=== PATIENT | female | born 1980 | race Two or more races ===

== ENCOUNTER 2025-07-08 21:45 | Emergency (ER) | payer MEDICAID, SELFPAY ==
[2025-07-08 21:47] VITALS: BMI 38.2
--- NOTE | 2025-07-08 21:57 | PD.EDABDPN ---
ED Abdominal Pain RME/HPI General Chief Complaint: Abdominal Pain Stated complaint: LEFT UPPER ABD PAIN Time seen by provider: 07/08/25 21:55 Arrival date/time: 07/08/25 21:45 RME / HPI RME / HPI narrative: See MDM for Dr. Benedict's HPI documentation. Related Data Previous Rx's ?Medication ?Instructions ?Recorded amlodipine 5 mg tablet 5 mg PO QDAY #30 tabs 07/23/24 atorvastatin 40 mg tablet 40 mg PO QPM #30 tabs 07/23/24 blood-glucose sensor (FreeStyle #2 ea 07/23/24 Griselda 3 Sensor device) blood-glucose,accounts payable coordinator,cont #1 ea 07/23/24 (FreeStyle Griselda 3 [place]) insulin degludec 100 unit/mL (3 20 unit (0.2 mL) subcut HS #15 mL 07/23/24 mL) subcutaneous pen (Tresiba FlexTouch U-100 insulin) lisinopril 40 mg tablet 40 mg PO QDAY #30 tabs 07/23/24 metformin 1,000 mg tablet 1,000 mg PO BIDWMEAL 30 days #60 07/23/24 tabs pen needle, diabetic 32 gauge x #100 ea 07/23/24 (1st Tier Unifine Pentips Plus) semaglutide 0.25 mg or 0.5 mg (2 0.25 mg (0.368 mL) subcut QWEEK #3 07/23/24 mg/3 mL) subcutaneous pen injector mL (Ozempic) cefdinir 300 mg capsule 300 mg PO BID #14 caps 07/09/25 magnesium oxide 400 mg PO BID #60 tabs 07/09/25 ondansetron 4 mg disintegrating 4 mg PO TID PRN nausea and 07/09/25 tablet vomiting 30 days #10 tabs Allergies Allergy/AdvReac Type Severity Reaction Status Date / Time morphine Allergy Severe Swelling Verified 07/08/25 21:46 of Lip/Tongue/Throat Review of Systems Review of Systems Systems Reviewed: All systems reviewed, normal except as documented Past Medical History Past Medical History NEUROLOGIC: Negative Neurological Disorders CARDIAC: Positive Hypertension; Negative Cardiac Disorders or Congestive Heart Failure RESPIRATORY: Negative Chronic Obstructive Pulmonary Disease (COPD) GASTROINTESTINAL: Negative Gastrointestinal Disorders GENITOURINARY: Negative Genitourinary Disorders or Renal Disease MUSCULOSKELETAL: Negative Musculoskeletal Disorders ENDOCRINE: Positive Endocrine Disorders, Diabetes Mellitus Type 1 and Diabetes Mellitus Type 2 Family History FAMILY HISTORY: Negative Family Cardiac Disorders Surgical History SURGICAL: Negative Cardiac Surgery, Endocrine Surgery, Ear Surgery, Abdominal Surgery, Nephrectomy or Neurologic Surgery Social History SMOKING STATUS: Never smoker SUBSTANCE USE: does not use ED Exam Narrative Physical exam: See [facility] for Dr. Benedict's physical exam documentation. Course Quality Measures none Orders Category Date Time Status Saline [Insert IV] NOW Care 07/08/25 23:[address] abdomen pelvis wo con Stat Exams 07/08/25 22:07 Taken US abdomen limited Stat Exams 07/08/25 22:14 Completed Amylase Stat Lab 07/08/25 22:35 Completed Bilirubin,Direct Stat Lab 07/08/25 22:35 Completed CBC Stat Lab 07/08/25 22:35 Completed CMP [Comprehensive Metabolic Panel] Stat Lab 07/08/25 22:35 Completed HCG Qualitative,Urine Stat Lab 07/08/25 22:43 Completed HCG,Qualitative Serum Stat Lab 07/08/25 22:35 Completed Lipase Stat Lab 07/08/25 22:35 Completed Magnesium Stat Lab 07/08/25 22:35 Completed UA, C/S IF [Urinalysis, C/S if Indicated] Stat Lab 07/08/25 22:43 Completed Urine Culture Stat Lab 07/08/25 22:43 Received ACETAMINOPHEN w/COD 300-30 [Tylenol w/Cod #3] Med 07/08/25 22:06 Discontinued 2 tab PO X1 ONE Magnesium Sulfate 4 GM Ivpb [Magnesium Sulfate Ivpb] Med 07/08/25 23:53 Discontinued 4 gm in 50 ml IV X1 Ondansetron Inj [Zofran Inj] Med 07/08/25 23:52 Discontinued 4 mg IVP X1 ONE Ondansetron Odt [Zofran Odt] Med 07/08/25 22:06 Discontinued 4 mg PO X1 ONE Sodium Chloride 0.9% 1000 ml [Ns] 1,000 ml Med 07/08/25 23:52 Discontinued IV 999 mls/hr cefTRIAXone/D5w 1gm IV premix [Rocephin/D5w 1gm IV Med 07/08/25 23:52 Discontinued premix] 1 g in 50 ml IV X1 Vital Signs Vital signs: Vital Signs Temperature 98.6 F 07/08/25 22:42 Pulse Rate 99 07/08/25 22:42 Respiratory Rate 18 07/08/25 22:42 Blood Pressure 177/83 H 07/08/25 22:42 Pulse Oximetry (%) 96 07/08/25 22:42 Oxygen Delivery Method Room Air 07/08/25 22:42 Abdominal Pain MDM MDM Narrative MDM Narrative:: This section includes all my notes and documentations, including HPI, PE, and ED course. Anant Benedict MD HPI: 45yo female here with left flank pain for the last couple days. With nausea, vomiting, and decreased appetite. No fever. No other complaints reported. ROS: All negative except as documented in HPI. Physical Exam: General: Alert and oriented. Appears uncomfortable. Eyes: Conjunctivae and lids clear. ENT: No nasal congestion. Neck: Supple. Heart: RRR. Lungs: No respiratory distress. Good air movement. No rhonchi, wheezing, rales. Abdomen: Soft with equivocal left flank tenderness. Normal bowel sounds. No distension. No rebound or guarding. Back: No CVA tenderness. Skin: Warm and dry. Neuro: Alert and oriented X 3. Prior to diagnostic tests, she was given Zofran ODT and two Tylenol #3. No improvement noted. I reviewed all diagnostic test results. My review of the abdominal ultrasound report is NAD. My review of the CT abdomen pelvis report is pyelonephritis. Blood tests remarkble for WBC 11.5, Mg 1.1. UA remarkable for positive leukocyte esterase and 4+ bacteria. At this point, diagnoses include: Pyelonephritis Hypomagnesemia Treatment after diagnostic test results included: Magnesium 4 g IV Rocephin 1 g IV IV fluid Zofran 4 mg IV Significant improvement noted. Recommend outpatient management. Based on my best medical judgment, made decision no further evaluation or treatment indicated at this time. Patient understands and agrees to the discharge instructions customized and printed, see below. Discharge instructions from Dr. Benedict: 1. After evaluation, you have kidney infection (see attached handout) and very low magnesium level. 2. Take cefdinir to kill the germs causing the infection. 3. For good hydration, increase oral fluid and maintain clear urine. If dark or yellow, increase oral fluid. Zofran for nausea/vomiting. 4. Take magnesium pills as prescribed. Increase food rich in magnesium. Such as green and leafy vegetables and peanuts and almonds and cashews. 5. See a private doctor on 07/11/2025 for recheck. Ask to review all test results and official radiology reports, to make sure you receive all necessary follow-ups and monitoring, including urine culture results from today and repeat magnesium level. 6. Seek immediate medical care with worsening, fever, or with any concerns. Anant Benedict MD Patient data External records reviewed:: [facility] previous records (Per chart review, patient was seen here on 07/30/24 for hypomagnesemia.) Clinical information provided by:: patient Social determinants that could affect healthcare access:: none Patient has the following chronic illnesses:: DM, HTN How is presenting disease/condition affected by chronic disease/condition?: uneffected by Evaluation data The following diagnostics were reviewed and interpreted by me:: lab results and radiology exam(s) Lab and/or radiology exams considered but not ordered:: none Interpretation Summary: I reviewed all diagnostic test results. My review of the abdominal ultrasound report is NAD. My review of the CT abdomen pelvis report is pyelonephritis. Blood tests remarkble for WBC 11.5, Mg 1.1. UA remarkable for positive leukocyte esterase and 4+ bacteria. Medications / Prescriptions Medications or Prescriptions considered but not ordered:: none Medication administrations:: Medication Administration History Discontinued Medications Acetaminophen/Codeine Phosphate (Acetaminophen W/Cod 300-30 Tablet) 2 tab PO X1 ONE Stop: 07/08/25 22:07 Last Admin: 07/09/25 00:26 Dose: 2 tab Documented By: KEITH Ceftriaxone Sodium/Dextrose (Rocephin/D5w 1gm Iv Premix) 1 g in 50 mls @ 100 mls/hr IV X1 ONE Stop: 07/09/25 00:21 Last Infusion: 07/09/25 01:05 Dose: Infused Documented By: [email or web address] Admin: 07/09/25 00:23 Dose: 100 mls/hr Documented By: KEITH Sodium Chloride (Ns) 1,000 mls @ 999 mls/hr IV .Q1H1M ONE Stop: 07/09/25 00:52 Last Infusion: 07/09/25 01:05 Dose: Infused Documented By: [email or web address] Admin: 07/09/25 00:24 Dose: 999 mls/hr Documented By: KEITH Magnesium Sulfate (Magnesium Sulfate Ivpb) 4 gm in 50 mls @ 12.5 mls/hr IV X1 ONE Stop: 07/09/25 03:52 Last Admin: 07/09/25 00:26 Dose: 12.5 mls/hr Documented By: KEITH Ondansetron HCl (Ondansetron Odt 4 Mg Tabrap) 4 mg PO X1 ONE; Protocol Stop: 07/08/25 22:07 Last Admin: 07/09/25 00:26 Dose: Not Given Documented By: KEITH Non-Admin Reason: Allergy Ondansetron HCl (Ondansetron Inj 2 Mg/Ml Inj 2 Ml) 4 mg IVP X1 ONE; Protocol Stop: 07/08/25 23:53 Last Admin: 07/09/25 00:24 Dose: 4 mg Documented By: KEITH Prior to diagnostic tests, she was given Zofran ODT and two Tylenol #3. No improvement noted. Treatment after diagnostic test results included: Magnesium 4 g IV Rocephin 1 g IV IV fluid Zofran 4 mg IV Consultations Consultation(s) initiated? (list below): No Diagnosis Differential diagnosis abdominal pain: acute appendicitis, calculus of kidney, constipation, diverticulitis, endometriosis, gastroenteritis, pancreatitis and small bowel obstruction Most likely diagnosis given after review of the tests above:: Pyelonephritis, Hypomagnesemia Admission Indicated Admission indicated?: not indicated Explain why admission is indicated or not indicated:: With significant improvement and no condition needing emergent intervention, there was no indication for admission. Admission Request Was there a request for admission?: No Disposition Plan Disposition Plan: Discharge Discharge Attestation Discharge Attestation: The patient and all family members were given an opportunity to ask questions and understood the discharge instructions. Discharge instructions specifically effects, indications for sooner follow up or return to the emergency department, and the expected course of current diagnosis. Patient condition: Stable Discharge Plan Plan Patient Disposition: HOME (Self Care) Prescriptions/Referrals Prescriptions/Med Rec: New cefdinir 300 mg capsule 300 mg PO BID Qty: 14 0RF magnesium oxide 400 mg magnesium tablet 400 mg PO BID Qty: 60 0RF ondansetron 4 mg tablet,disintegrating 4 mg PO TID PRN (Reason: nausea and vomiting) 30 Days Qty: 10 0RF No Action lisinopril 40 mg tablet 40 mg PO QDAY Qty: 30 0RF insulin degludec [Tresiba FlexTouch U-100] 100 unit/mL (3 mL) insulin pen 20 unit subcut HS Qty: 15 0RF Ozempic 0.25 mg or 0.5 mg (2 mg/3 mL) pen injector 0.25 mg subcut QWEEK Qty: 3 0RF Rx Instructions: for 4 weeks (DME) pen needle, diabetic [1st Tier Unifine Pentips Plus] 32 gauge x 5/32 needle See Rx Instructions .Route Qty: 100 0RF Rx Instructions: As directed (DME) FreeStyle Griselda 3 [place] Misc See Rx Instructions .Route Qty: 1 0RF Rx Instructions: As directed atorvastatin 40 mg tablet 40 mg PO QPM Qty: 30 0RF (DME) FreeStyle Griselda 3 Sensor Device See Rx Instructions .Route Qty: 2 3RF Rx Instructions: As directed metformin 1,000 mg tablet 1,000 mg PO BIDWMEAL 30 Days Qty: 60 2RF amlodipine 5 mg tablet 5 mg PO QDAY Qty: 30 3RF Referrals: No Primary/Family,Physician [Primary Care Provider] - In 1 week Problem List Clinical Impression: Pyelonephritis, Hypomagnesemia Patient/Caregiver Discharge Instructions Discharge Activity: activity as tolerated Education Materials: Magnesium (Blood), ED Pyelonephritis, Female (Adult) Additional Instructions: Discharge instructions from Dr. Benedict: 1. After evaluation, you have kidney infection (see attached handout) and very low magnesium level. 2. Take cefdinir to kill the germs causing the infection. 3. For good hydration, increase oral fluid and maintain clear urine. If dark or yellow, increase oral fluid. Zofran for nausea/vomiting. 4. Take magnesium pills as prescribed. Increase food rich in magnesium. Such as green and leafy vegetables and peanuts and almonds and cashews. 5. See a private doctor on 07/11/2025 for recheck. Ask to review all test results and official radiology reports, to make sure you receive all necessary follow-ups and monitoring, including urine culture results from today and repeat magnesium level. 6. Seek immediate medical care with worsening, fever, or with any concerns. Instrucciones de fede del Dr. Benedict: 1. Tras la evaluaci?n, presenta tessie infecci?n renal (dafne folleto adjunto) y un nivel muy bajo de magnesio. 2. [place] cefdinir para eliminar los g?rmenes que causan la infecci?n. 3. Para tessie buena hidrataci?n, aumente la ingesta de l?quidos y mantenga la orina leonard. Si la orina es oscura o amarilla, aumente la ingesta de l?quidos. Zofran para las n?useas y los v?mitos. 4. [place] las pastillas de magnesio seg?n lo prescrito. Aumente el consumo de alimentos ricos en magnesio, kwame verduras de hoja danay, cacahuetes, almendras y anacardos. 5. Consulte con un m?dico particular el 10/07/2025 para tessie nueva evaluaci?n. Solicite la revisi?n de todos los resultados de las pruebas y los informes radiol?gicos oficiales para asegurarse de recibir todos los controles y monitoreos necesarios, incluyendo los resultados del urocultivo de hoy y la repetici?n del nivel de magnesio. 6. Busque atenci?n m?dica inmediata si presenta empeoramiento de la condici?n, fiebre o cualquier inquietud. Print Language: Mexican Stand Alone Forms: Mary Beth Award Info., Patient Portal Info Letter
--- NOTE | 2025-07-08 22:07 | XR_ITS ---
Examination: CT abdomen and pelvis without contrast. Coronal 3-D reconstructions. Sagittal 2-D reconstructions. Date and time of exam:July 08, 2025, 11:59 PM Indications: Left upper abdominal pain beginning 2 days ago. CTDI: vol (mGy): 15.7. DLP: (mGycm): 125. Technique: Axial images of the abdomen have been obtained, 3 mm slice thickness Intravenous contrast material has not been administered. Low dose protocols were performed. One or more of the following dose reduction techniques were used; automated exposure control, adjustment of the mA and/or KV according to patient size, use of iterative reconstruction technique. Findings: Hyperdense material in the stomach, clinical correlation advised No liver or splenic lesion Absent gallbladder Mild perinephric stranding. No renal or ureteral calculi, no hydronephrosis Aorta normal size. Tiny fat-containing umbilical hernia. Normal appendix. No pelvic mass Contracted urinary bladder Impression: Minor perinephric stranding Normal appendix No bowel obstruction
--- NOTE | 2025-07-08 22:14 | XR_ITS ---
Examination: Abdomen sonogram, Limited Date and time of exam: July 08, 2025 1020 hrs. Indications: Epigastric pain and nausea today Technique: Real-time melton scale transabdominal sonographic images of the upper abdomen obtained. Findings: No diagnostic visualization gallbladder Common bile duct 0.6 cm no stones Pancreatic head 3.1 cm Liver 13.8 cm fatty infiltration Normal hepatopedal portal venous flow Patent IVC Impression: No diagnostic visualization gallbladder Common bile duct 0.6 cm no stones
[2025-07-08 22:42] VITALS: BP 177/83; PULSE 99; RESP 18; TEMP 37; O2SAT 96
[2025-07-08 22:43] LABS: Basophils # (Auto) 0.0 Thou/mm3 (0.0-0.2); Basophils % (Auto) 0 % (0-2.5); Eosinophils # (Auto) 0.5 Thou/mm3 (0.0-0.5); Eosinophils % (Auto) 4 % (0-10); Hematocrit 38.0 % (36.0-46.0); Hemoglobin 13.2 g/dL (12.0-16.0); Immature Granulocytes Auto 0.04 Thou/mm3 (0.00-0.00); Lymphocytes # (Auto) 3.6 Thou/mm3 (1.0-4.8); Lymphocytes % (Auto) 31 % (10-50); Mean Corpuscular HGB Conc 34.7 g/dl (31.0-37.0); Mean Corpuscular Hemoglobin 30.8 pg (25.0-35.0); Mean Corpuscular Volume 89 fL (80-100); Monocytes # (Auto) 0.7 Thou/mm3 (0.0-0.8); Monocytes % (Auto) 6 % (0-12); Neutrophils # (Auto) 6.8 Thou/mm3 (1.8-7.7); Neutrophils % (Auto) 59 % (37-80); Nucleated Red Blood Cell # 0.00 Thou/mm3 (0.00-0.00); Nucleated Red Blood Cell % 0 /100 WBC (0); Platelet Count 237 Thou/mm3 (140-440); RDW Standard Deviation 37.9 fL (36.4-46.3); Red Blood Count 4.28 Miln/mm3 (4.00-5.20); White Blood Count 11.5 Thou/mm3 (3.6-11.0)
[2025-07-08 23:00] LABS: HCG,Qualitative Serum Negative
[2025-07-08 23:03] LABS: Alanine Aminotransferase 15 U/L (10-49); Albumin, Serum 4.0 gm/dL (3.5-5.0); Albumin/Globulin Ratio 1.2 (1.2-2.2); Alkaline Phosphatase 76 U/L (46-116); Amylase 60 U/L (30-118); Anion Gap 10 (7-16); Aspartate Amino Transferase 18 U/L (0-34); BUN/Creatinine Ratio 16 Ratio (12-20); Bilirubin,Direct < 0.1 mg/dL (0.0-0.3); Bilirubin,Total 0.3 mg/dL (0.3-1.2); Blood Urea Nitrogen 13 mg/dL (9-23); Calcium 10.1 mg/dL (8.3-10.6); Calcium (Corrected) 10.1 mg/dL (8.5-10.1); Carbon Dioxide 26.5 mMol/L (20.0-31.0); Chloride 101 mMol/L (98-107); Creatinine (Component) 0.8 mg/dL (0.6-1.3); Estimated Creatinine Clearance 107.6 mL/min (>60); Globulin 3.3 gm/dL (2.3-3.5); Glucose 126 mg/dL (74-106); Lipase 46 U/L (12-53); Magnesium 1.1 mg/dL (1.6-2.6); Osmolality,Calculated 275 (275-295); Potassium 4.6 mMol/L (3.4-5.1); Sodium 137 mMol/L (136-145); Total Protein 7.3 gm/dL (5.7-8.2); eGFR > 60 See Note
[2025-07-08 23:16] LABS: Collection Type, Urine Clean Catch
[2025-07-08 23:28] LABS: Bacteria,Urine 4+; Bilirubin,Urine Negative (Negative); Blood,Urine Negative (Negative); Clarity,Urine Clear (Clear/Hazy); Color,Urine Lt-Yellow (Lt Yel-Yel); Glucose, Urine Negative (Negative); Hyaline Casts,Urine < 1 /hpf (0-1); Ketones,Urine Negative (Negative); Leukocyte Esterase,Urine Positive (Negative); Nitrite,Urine Negative (Negative); PH,Urine 6.0 (5.0-7.0); Protein,Urine 1+ (Neg - Trace); RBC,Urine 2 /hpf (0-3); Specific Gravity,Urine 1.011 (1.001-1.035); Squamous Epithelial Cell,Urine 5 /hpf (0-5); Urobilinogen,Urine Negative mg/dL (0.0-1.0); WBC,Urine 5 /hpf (0-5)
[2025-07-08 23:29] LABS: HCG Qualitative,Urine Negative
[2025-07-08 23:30] LABS: Culture Indicated,Urine Yes
[2025-07-09 00:10] VITALS: BP 187/94; PULSE 101; RESP 18; TEMP 36.9; O2SAT 96
[2025-07-09] MEDS: cefTRIAXone/D5w 1gm IV premix 1 G/50 ML BAG IV (00:23)
[2025-07-09] MEDS: ONDANSETRON INJ 2 MG/ML INJ 2 ML 4 MG IVP (00:24)
[2025-07-09] MEDS: SODIUM CHLORIDE 0.9% 1000 ML 1,000 ML 999 ML IV (00:24)
[2025-07-09] MEDS: Magnesium Sulfate 4 GM Ivpb 4 GM/50 ML BAG IV (00:26)
[2025-07-09] MEDS: ACETAMINOPHEN w/COD 300-30 TABLET 2 TAB PO (00:26)
--- NOTE | 2025-07-09 01:23 | PRELIM_ITS ---
CT scan of the abdomen and pelvis without intravenous contrast (axial sections with sagittal and coronal reformats) July 08, 2025 2359 hours Clinical History: Left flank pain Comparison: No prior study is available for comparison. Findings: The lung bases are clear. The gallbladder is surgically absent. Perinephric fat stranding is seen bilaterally. The liver, pancreas, spleen and adrenals are unremarkable on this noncontrast study. Hyperdense material is seen in the distended stomach. No evidence of bowel obstruction. There are tiny appendicoliths. No evidence of appendicitis. There is no mesenteric or retroperitoneal adenopathy. The urinary bladder is incompletely distended and appears mildly thick walled. The uterus and adnexa are unremarkable. There is no free fluid or free air. Calcific densities are seen in the pelvis, likely representing phleboliths. Mild degenerative changes are identified in the spine. Impression: No evidence of renal/ureteric calculus or hydroureteronephrosis. Perinephric fat stranding bilaterally. While nonspecific, the possibility of urinary infection cannot be excluded. Possible cystitis. Recommend clinical correlation. Hyperdense material in the stomach, could be due to ingested medication or contrast. Recommend clinical correlation. Discussion Details: Results Discussed With : Dr. Benedict at 01:15 AM 07/09/2025 Report Electronically Signed By: Magdalene Marino 07/09/2025 1:22:46 AM [EST]
[2025-07-09 02:59] VITALS: BP 151/87; PULSE 91; RESP 18; TEMP 36.8; O2SAT 96
[2025-07-09 04:19] VITALS: BP 151/80; PULSE 62; RESP 18; TEMP 36.6; O2SAT 95
== END 2025-07-09 04:21 | disposition home or self-care (01) ==
PROVIDERS: Emergency Provider Emergency Medicine
DX: N12 Tubulo-interstitial nephritis, not specified as acute or chronic (principal); E83.42 Hypomagnesemia
CPT/HCPCS: 36415; 74176; 76705; 80053; 81001; 81025; 82150; 82248; 83690; 83735; 84703; 85025; 87086; 96365; 96366; 96375; 99284; J0696; J2405; J3475; J7030; A9270

== ENCOUNTER 2025-07-18 11:51 | Emergency (ER) | payer MEDICAID, SELFPAY ==
[2025-07-18 12:10] VITALS: BP 154/86; PULSE 94; RESP 18; TEMP 36.9; O2SAT 100; BMI 40.5
--- NOTE | 2025-07-18 12:34 | PD.EDBACK ---
ED Back Injury Pain RME/HPI General Chief Complaint: Back Pain/Injury Stated Complaint: KIDNEY INFECTION, L SIDE PAIN Time Seen by Provider: 07/18/25 12:08 Source: patient Arrival date/time: 07/18/25 11:51 45-year-old female with a history of hypertension, hyperlipidemia, type 2 diabetes presents to the emergency room with a chief complaint of left-sided flank pain x 3 days Mode of arrival: ambulatory Limitations: no limitations Related Data Previous Rx's ?Medication ?Instructions ?Recorded amlodipine 5 mg tablet 5 mg PO QDAY #30 tabs 07/23/24 atorvastatin 40 mg tablet 40 mg PO QPM #30 tabs 07/23/24 blood-glucose sensor (FreeStyle #2 ea 07/23/24 Griselda 3 Sensor device) blood-glucose,dandy tender,cont #1 ea 07/23/24 (FreeStyle Griselda 3 [place]) insulin degludec 100 unit/mL (3 20 unit (0.2 mL) subcut HS #15 mL 07/23/24 mL) subcutaneous pen (Tresiba FlexTouch U-100 insulin) lisinopril 40 mg tablet 40 mg PO QDAY #30 tabs 07/23/24 metformin 1,000 mg tablet 1,000 mg PO BIDWMEAL 30 days #60 07/23/24 tabs pen needle, diabetic 32 gauge x #100 ea 07/23/24 (1st Tier Unifine Pentips Plus) semaglutide 0.25 mg or 0.5 mg (2 0.25 mg (0.368 mL) subcut QWEEK #3 07/23/24 mg/3 mL) subcutaneous pen injector mL (Ozempic) cefdinir 300 mg capsule 300 mg PO BID #14 caps 07/09/25 magnesium oxide 400 mg PO BID #60 tabs 07/09/25 ondansetron 4 mg disintegrating 4 mg PO TID PRN nausea and 07/09/25 tablet vomiting 30 days #10 tabs Allergies Allergy/AdvReac Type Severity Reaction Status Date / Time morphine Allergy Severe Swelling Verified 07/18/25 11:54 of Lip/Tongue/Throat Review of Systems Review of Systems Systems Reviewed: All systems reviewed, normal except as documented Constitutional Constitutional: Reports system reviewed and no additional complaints, except as documented, Denies fatigue, Denies fever(s), Denies headache(s) and Denies weakness Eyes Eyes: Reports system reviewed and no additional complaints, except as documented, Denies blurry vision and Denies change in vision ENT Ears, Nose, Mouth, and Throat: Reports system reviewed and no additional complaints, except as documented, Denies otalgia, Denies headache(s), Denies nasal congestion, Denies throat swelling and Denies vertigo Cardiovascular Cardiovascular: Reports system reviewed and no additional complaints, except as documented, Denies chest pain, Denies dyspnea and Denies dyspnea on exertion Respiratory Respiratory: Reports system reviewed and no additional complaints, except as documented, Denies chest congestion, Denies cough, Denies dyspnea, Denies dyspnea on exertion and Denies wheezing Gastrointestinal Gastrointestinal: Reports system reviewed and no additional complaints, except as documented, Denies abdominal pain, Denies cramping, Denies nausea and Denies vomiting Genitourinary Genitourinary: Reports system reviewed and no additional complaints, except as documented Musculoskeletal Musculoskeletal: Reports system reviewed and no additional complaints, except as documented and Denies back pain Integumentary/Breasts Skin/Breast: Reports system reviewed and no additional complaints, except as documented and Denies wounds Neurologic Neurologic: Reports system reviewed and no additional complaints, except as documented, Denies confusion, Denies headache(s), Denies lack of coordination, Denies vertigo and Denies weakness Psychiatric Psychiatric: Reports system reviewed and no additional complaints, except as documented, Denies anxiety, Denies confusion, Denies depression, Denies paranoia, Denies suicidal ideation and Denies tactile hallucinations Endocrine Endocrine: Reports system reviewed and no additional complaints, except as documented and Denies fatigue Hematologic/Lymphatic Hematologic/Lymphatic: Reports system reviewed and no additional complaints, except as documented and Denies lymphadenopathy Allergic/Immunologic Allergic/Immunologic: Reports system reviewed and no additional complaints, except as documented, Denies throat swelling, Denies urticaria and Denies wheezing Past Medical History Past Medical History NEUROLOGIC: Negative Neurological Disorders CARDIAC: Positive Hypertension; Negative Cardiac Disorders or Congestive Heart Failure RESPIRATORY: Negative Chronic Obstructive Pulmonary Disease (COPD) GASTROINTESTINAL: Negative Gastrointestinal Disorders GENITOURINARY: Negative Genitourinary Disorders or Renal Disease MUSCULOSKELETAL: Negative Musculoskeletal Disorders ENDOCRINE: Positive Endocrine Disorders, Diabetes Mellitus Type 1 and Diabetes Mellitus Type 2 Family History FAMILY HISTORY: Negative Family Cardiac Disorders Surgical History SURGICAL: Negative Cardiac Surgery, Endocrine Surgery, Ear Surgery, Abdominal Surgery, Nephrectomy or Neurologic Surgery Social History SMOKING STATUS: Never smoker SUBSTANCE USE: does not use ED Exam General Limitations: Present no limitations General appearance: Present alert and in no apparent distress Head Head exam: Present atraumatic Eye Eye exam: Present normal appearance, PERRL and EOMI ENT ENT exam: Present normal exam, normal oropharynx and mucous membranes moist Neck Neck exam: Present normal inspection, full ROM and trachea midline Chest Chest inspection: Present normal inspection and symmetric chest wall rise Respiratory Respiratory exam: Present normal lung sounds bilaterally Cardiovascular Cardiovascular exam: Present regular rate, normal rhythm and normal heart sounds Abdominal Exam Abdominal exam: Present soft and normal bowel sounds Extremities Exam Extremities exam: Present normal inspection and full ROM Back Exam Back exam: Present normal inspection, full ROM and CVA tenderness (L) Neurological Exam Neurological exam: Present alert, oriented X3 and CN II-XII intact Psychiatric Psychiatric exam: Present normal affect and normal mood Skin Skin exam: Present warm, dry, intact and normal color Course Quality Measures none Orders Category Date Time Status CBC Stat Lab 07/18/25 12:38 Completed CMP [Comprehensive Metabolic Panel] Stat Lab 07/18/25 12:38 Completed HCG Qualitative,Urine Stat Lab 07/18/25 13:05 Completed UA [Urinalysis] Stat Lab 07/18/25 13:05 Completed Urine Culture Stat Lab 07/18/25 13:01 Received Vital Signs Vital signs: Vital Signs Temperature 98.5 F 07/18/25 12:10 Pulse Rate 94 07/18/25 12:10 Respiratory Rate 18 07/18/25 12:10 Blood Pressure 154/86 H 07/18/25 12:10 Pulse Oximetry (%) 100 07/18/25 12:10 Oxygen Delivery Method Room Air 07/18/25 12:10 Back Pain / Injury MDM Narrative MDM Narrative:: 45-year-old female with a history of hypertension, hyperlipidemia, type 2 diabetes presents to the emergency room with a chief complaint of left-sided flank pain x 3 days Patient is hemodynamically stable and in no apparent distress. Patient is afebrile nontachycardic nontachypneic Physical examination shows some left-sided CVA tenderness with palpation. The patient had a CT scan of her abdomen and pelvis done 10 days ago which was negative for any acute findings. Urinalysis CBC were all negative for any acute findings Patient was discharged and educated to follow-up with primary care provider in the next 24 to 48 hours and return to the emergency room for any evidence of worsening signs or symptoms Patient data External records reviewed:: [facility] previous records Clinical information provided by:: patient Social determinants that could affect healthcare access:: none Patient has the following chronic illnesses:: No chronic illness How is presenting disease/condition affected by chronic disease/condition?: no chronic disease Evaluation data The following diagnostics were reviewed and interpreted by me:: lab results and radiology exam(s) Lab and/or radiology exams considered but not ordered:: Labs and radiology exams considered and ordered Interpretation Summary: CT abdomen and pelvis-Findings: Hyperdense material in the stomach, clinical correlation advised No liver or splenic lesion Absent gallbladder Mild perinephric stranding. No renal or ureteral calculi, no hydronephrosis Aorta normal size. Tiny fat-containing umbilical hernia. Normal appendix. No pelvic mass Contracted urinary bladder Impression: Minor perinephric stranding Normal appendix No bowel obstruction Medications / Prescriptions Medications or Prescriptions considered but not ordered:: No medication given Medication administrations:: No medication given Consultations Consultation(s) initiated? (list below): No Diagnosis Differential diagnosis back pain/injury: pyelonephritis and other (Urinary tract infection) Most likely diagnosis given after review of the tests above:: Urinary tract infection Admission Indicated Admission indicated?: not indicated Admission Request Was there a request for admission?: No Disposition Plan Disposition Plan: Discharge Discharge Attestation Discharge Attestation: The patient and all family members were given an opportunity to ask questions and understood the discharge instructions. Discharge instructions specifically effects, indications for sooner follow up or return to the emergency department, and the expected course of current diagnosis. Patient condition: Stable Discharge Plan Plan Patient Disposition: HOME (Self Care) Discharge Disposition comment: Stable Prescriptions/Referrals Prescriptions/Med Rec: No Action lisinopril 40 mg tablet 40 mg PO QDAY Qty: 30 0RF insulin degludec [Tresiba FlexTouch U-100] 100 unit/mL (3 mL) insulin pen 20 unit subcut HS Qty: 15 0RF Ozempic 0.25 mg or 0.5 mg (2 mg/3 mL) pen injector 0.25 mg subcut QWEEK Qty: 3 0RF Rx Instructions: for 4 weeks (DME) pen needle, diabetic [1st Tier Unifine Pentips Plus] 32 gauge x 5/32 needle See Rx Instructions .Route Qty: 100 0RF Rx Instructions: As directed (DME) FreeStyle Griselda 3 [place] Misc See Rx Instructions .Route Qty: 1 0RF Rx Instructions: As directed atorvastatin 40 mg tablet 40 mg PO QPM Qty: 30 0RF (DME) FreeStyle Griselda 3 Sensor Device See Rx Instructions .Route Qty: 2 3RF Rx Instructions: As directed metformin 1,000 mg tablet 1,000 mg PO BIDWMEAL 30 Days Qty: 60 2RF amlodipine 5 mg tablet 5 mg PO QDAY Qty: 30 3RF cefdinir 300 mg capsule 300 mg PO BID Qty: 14 0RF magnesium oxide 400 mg magnesium tablet 400 mg PO BID Qty: 60 0RF ondansetron 4 mg tablet,disintegrating 4 mg PO TID PRN (Reason: nausea and vomiting) 30 Days Qty: 10 0RF Referrals: Sam Charlton MD [Primary Care Provider, Family Practice] - In 1 week Problem List Clinical Impression: Acute flank pain Patient/Caregiver Discharge Instructions Education Materials: ED Flank Pain, Uncertain Cause Additional Instructions: Please follow-up with your primary care provider in the next 24 to 48 hours Urinalysis shows a UTI that is getting better. Please continue to take antibiotics as indicated Your blood work was negative for any acute infection. Your CT scan that was done 10 days ago was negative for any acute findings For any evidence of worsening signs or symptoms please return the emergency room immediately Print Language: Honduran Stand Alone Forms: Mary Beth Award Info., Patient Portal Info Letter PA/EDIN Supervising Physician PA/EDIN Supervising Physician: Dr. Cobos
[2025-07-18 12:52] LABS: Basophils # (Auto) 0.0 Thou/mm3 (0.0-0.2); Basophils % (Auto) 0 % (0-2.5); Eosinophils # (Auto) 0.4 Thou/mm3 (0.0-0.5); Eosinophils % (Auto) 3 % (0-10); Hematocrit 36.1 % (36.0-46.0); Hemoglobin 12.4 g/dL (12.0-16.0); Immature Granulocytes Auto 0.05 Thou/mm3 (0.00-0.00); Lymphocytes # (Auto) 3.3 Thou/mm3 (1.0-4.8); Lymphocytes % (Auto) 24 % (10-50); Mean Corpuscular HGB Conc 34.3 g/dl (31.0-37.0); Mean Corpuscular Hemoglobin 31.2 pg (25.0-35.0); Mean Corpuscular Volume 91 fL (80-100); Monocytes # (Auto) 0.9 Thou/mm3 (0.0-0.8); Monocytes % (Auto) 6 % (0-12); Neutrophils # (Auto) 8.9 Thou/mm3 (1.8-7.7); Neutrophils % (Auto) 66 % (37-80); Nucleated Red Blood Cell # 0.00 Thou/mm3 (0.00-0.00); Nucleated Red Blood Cell % 0 /100 WBC (0); Platelet Count 294 Thou/mm3 (140-440); RDW Standard Deviation 38.9 fL (36.4-46.3); Red Blood Count 3.98 Miln/mm3 (4.00-5.20); White Blood Count 13.5 Thou/mm3 (3.6-11.0)
[2025-07-18 13:10] LABS: Alanine Aminotransferase 17 U/L (10-49); Albumin, Serum 3.8 gm/dL (3.5-5.0); Albumin/Globulin Ratio 1.3 (1.2-2.2); Alkaline Phosphatase 73 U/L (46-116); Anion Gap 9 (7-16); Aspartate Amino Transferase 18 U/L (0-34); BUN/Creatinine Ratio 13 Ratio (12-20); Bilirubin,Total 0.2 mg/dL (0.3-1.2); Blood Urea Nitrogen 13 mg/dL (9-23); Calcium 9.1 mg/dL (8.3-10.6); Calcium (Corrected) 9.3 mg/dL (8.5-10.1); Carbon Dioxide 26.4 mMol/L (20.0-31.0); Chloride 103 mMol/L (98-107); Creatinine (Component) 1.0 mg/dL (0.6-1.3); Estimated Creatinine Clearance 85.7 mL/min (>60); Globulin 2.9 gm/dL (2.3-3.5); Glucose 262 mg/dL (74-106); Osmolality,Calculated 284 (275-295); Potassium 4.0 mMol/L (3.4-5.1); Sodium 138 mMol/L (136-145); Total Protein 6.7 gm/dL (5.7-8.2); eGFR > 60 See Note
[2025-07-18 13:13] LABS: Collection Type, Urine Clean Catch
[2025-07-18 13:33] LABS: HCG Qualitative,Urine Negative
[2025-07-18 13:57] LABS: Bacteria,Urine 1+; Bilirubin,Urine Negative (Negative); Blood,Urine Negative (Negative); Color,Urine Yellow (Lt Yel-Yel); Glucose, Urine 3+ (Negative); Hyaline Casts,Urine < 1 /hpf (0-1); Ketones,Urine Trace (Negative); Leukocyte Esterase,Urine Negative (Negative); Nitrite,Urine Negative (Negative); PH,Urine 6.0 (5.0-7.0); Protein,Urine 2+ (Neg - Trace); RBC,Urine 5 /hpf (0-3); Specific Gravity,Urine 1.025 (1.001-1.035); Squamous Epithelial Cell,Urine 14 /hpf (0-5); Urobilinogen,Urine Negative mg/dL (0.0-1.0); WBC,Urine 4 /hpf (0-5)
[2025-07-18 14:03] LABS: Clarity,Urine Hazy (Clear/Hazy)
== END 2025-07-18 14:32 | disposition home or self-care (01) ==
PROVIDERS: Nurse Practitioner Family; Emergency Provider Family Medicine; PCP Family Medicine
DX: R10.9 Unspecified abdominal pain (principal); N39.0 Urinary tract infection, site not specified
CPT/HCPCS: 36415; 80053; 81001; 81025; 85025; 87086; 99283

== ENCOUNTER 2025-07-22 | Emergency (ER) | payer MEDICAID, SELFPAY ==
[2025-07-22] VITALS: BP 136/80; PULSE 87; RESP 18; TEMP 36.6; O2SAT 96
--- NOTE | 2025-07-22 00:23 | XR_ITS ---
Examination: CT abdomen and pelvis without contrast. Coronal 3-D reconstructions. Sagittal 2-D reconstructions. Date and time of exam:July 22, 2025 0300 hrs. Indications: Bilateral flank pain beginning 2 weeks ago. CTDI: vol (mGy): 14.3 DLP: (mGycm): 877 Technique: Axial images of the abdomen have been obtained, 3 mm slice thickness Intravenous contrast material has not been administered. Low dose protocols were performed. One or more of the following dose reduction techniques were used; automated exposure control, adjustment of the mA and/or KV according to patient size, use of iterative reconstruction technique. Findings: Liver is mildly irregular in contour Absent gallbladder. No pancreatic or adrenal mass. No renal or ureteral calculi, no hydronephrosis Normal appendix 4.3 cm left ovarian cystic mass Osseous structures are intact Impression: Consider pelvic sonography follow-up to confirm 4.3 cm left ovarian cyst
--- NOTE | 2025-07-22 00:23 | PD.EDRME ---
Rapid Medical Screening Exam RME Arrival date/time: 07/22/25 00:00 Chief Complaint: Abdominal Pain Time Seen by Provider: 07/22/25 00:07 Vital signs: Vital Signs Temperature 97.9 F 07/22/25 00:00 Pulse Rate 87 07/22/25 00:00 Respiratory Rate 18 07/22/25 00:00 Blood Pressure 136/80 H 07/22/25 00:00 Pulse Oximetry (%) 96 07/22/25 00:00 Oxygen Delivery Method Room Air 07/22/25 00:00 RME Narrative: Bilateral flank pain x 2 weeks. This is patient's third visit this month for same complaint
[2025-07-22 00:45] LABS: Basophils # (Auto) 0.0 Thou/mm3 (0.0-0.2); Basophils % (Auto) 0 % (0-2.5); Eosinophils # (Auto) 0.4 Thou/mm3 (0.0-0.5); Eosinophils % (Auto) 3 % (0-10); Hematocrit 37.2 % (36.0-46.0); Hemoglobin 12.5 g/dL (12.0-16.0); Immature Granulocytes Auto 0.03 Thou/mm3 (0.00-0.00); Lymphocytes # (Auto) 4.1 Thou/mm3 (1.0-4.8); Lymphocytes % (Auto) 33 % (10-50); Mean Corpuscular HGB Conc 33.6 g/dl (31.0-37.0); Mean Corpuscular Hemoglobin 30.6 pg (25.0-35.0); Mean Corpuscular Volume 91 fL (80-100); Monocytes # (Auto) 0.9 Thou/mm3 (0.0-0.8); Monocytes % (Auto) 7 % (0-12); Neutrophils # (Auto) 7.1 Thou/mm3 (1.8-7.7); Neutrophils % (Auto) 57 % (37-80); Nucleated Red Blood Cell # 0.00 Thou/mm3 (0.00-0.00); Nucleated Red Blood Cell % 0 /100 WBC (0); Platelet Count 260 Thou/mm3 (140-440); RDW Standard Deviation 39.4 fL (36.4-46.3); Red Blood Count 4.08 Miln/mm3 (4.00-5.20); White Blood Count 12.5 Thou/mm3 (3.6-11.0)
[2025-07-22 01:03] LABS: Alanine Aminotransferase 25 U/L (10-49); Albumin, Serum 4.1 gm/dL (3.5-5.0); Albumin/Globulin Ratio 1.3 (1.2-2.2); Alkaline Phosphatase 69 U/L (46-116); Amylase 43 U/L (30-118); Anion Gap 9 (7-16); Aspartate Amino Transferase 24 U/L (0-34); BUN/Creatinine Ratio 18 Ratio (12-20); Bilirubin,Total 0.3 mg/dL (0.3-1.2); Blood Urea Nitrogen 18 mg/dL (9-23); Calcium 9.4 mg/dL (8.3-10.6); Calcium (Corrected) 9.4 mg/dL (8.5-10.1); Carbon Dioxide 23.8 mMol/L (20.0-31.0); Chloride 106 mMol/L (98-107); Creatinine (Component) 1.0 mg/dL (0.6-1.3); Globulin 3.1 gm/dL (2.3-3.5); Glucose 121 mg/dL (74-106); Osmolality,Calculated 280 (275-295); Potassium 4.0 mMol/L (3.4-5.1); Sodium 139 mMol/L (136-145); Total Protein 7.2 gm/dL (5.7-8.2); eGFR > 60 See Note
[2025-07-22 02:10] LABS: Collection Type, Urine Clean Catch
[2025-07-22 02:19] LABS: HCG Qualitative,Urine Negative
[2025-07-22 02:23] LABS: Bacteria,Urine Rare; Bilirubin,Urine Negative (Negative); Blood,Urine Trace (Negative); Clarity,Urine Turbid (Clear/Hazy); Color,Urine Yellow (Lt Yel-Yel); Glucose, Urine Negative (Negative); Hyaline Casts,Urine < 1 /hpf (0-1); Ketones,Urine Negative (Negative); Leukocyte Esterase,Urine Positive (Negative); Nitrite,Urine Negative (Negative); PH,Urine 5.5 (5.0-7.0); Protein,Urine 1+ (Neg - Trace); RBC,Urine 5 /hpf (0-3); Specific Gravity,Urine 1.027 (1.001-1.035); Squamous Epithelial Cell,Urine 7 /hpf (0-5); Urobilinogen,Urine Negative mg/dL (0.0-1.0); WBC,Urine 30 /hpf (0-5)
--- NOTE | 2025-07-22 03:34 | PD.EDABDPN ---
ED Abdominal Pain RME/HPI General Chief Complaint: Abdominal Pain Stated complaint: UPPER ABD PAIN, FLANK PAIN Time seen by provider: 07/22/25 00:07 Arrival date/time: 07/22/25 00:00 Source: patient, family, RN notes reviewed and old records reviewed Mode of arrival: ambulatory Limitations: no limitations RME / HPI RME / HPI narrative: 45yof presents to ED for bilateral flank pain x2 weeks. This is patient's third visit this month for the same complaint. No fever, sob, c/p, n/v/d or urinary symptoms reported. Patient has taken tylenol with minimal relief. Related Data Previous Rx's ?Medication ?Instructions ?Recorded amlodipine 5 mg tablet 5 mg PO QDAY #30 tabs 07/23/24 atorvastatin 40 mg tablet 40 mg PO QPM #30 tabs 07/23/24 blood-glucose sensor (FreeStyle #2 ea 07/23/24 Griselda 3 Sensor device) blood-glucose,machine wood sander,cont #1 ea 07/23/24 (FreeStyle Griselda 3 [place]) insulin degludec 100 unit/mL (3 20 unit (0.2 mL) subcut HS #15 mL 07/23/24 mL) subcutaneous pen (Tresiba FlexTouch U-100 insulin) lisinopril 40 mg tablet 40 mg PO QDAY #30 tabs 07/23/24 metformin 1,000 mg tablet 1,000 mg PO BIDWMEAL 30 days #60 07/23/24 tabs pen needle, diabetic 32 gauge x #100 ea 07/23/24 5/ (1st Tier Unifine Pentips Plus) semaglutide 0.25 mg or 0.5 mg (2 0.25 mg (0.368 mL) subcut QWEEK #3 07/23/24 mg/3 mL) subcutaneous pen injector mL (Ozempic) cefdinir 300 mg capsule 300 mg PO BID #14 caps 07/09/25 magnesium oxide 400 mg PO BID #60 tabs 07/09/25 ondansetron 4 mg disintegrating 4 mg PO TID PRN nausea and 07/09/25 tablet vomiting 30 days #10 tabs acetaminophen 500 mg tablet 1,000 mg (2 x 500 mg) PO Q6H PRN 07/22/25 (Tylenol Extra Strength) pain #30 tabs cefdinir 300 mg capsule 300 mg PO BID 7 days #14 caps 07/22/25 ibuprofen 600 mg tablet 600 mg PO Q6H PRN pain #30 tabs 07/22/25 methocarbamol 500 mg tablet 1,000 mg (2 x 500 mg) PO Q8H PRN 07/22/25 pain #30 tabs Allergies Allergy/AdvReac Type Severity Reaction Status Date / Time morphine Allergy Severe Swelling Verified 07/22/25 00:01 of Lip/Tongue/Throat Review of Systems Review of Systems Systems Reviewed: All systems reviewed, normal except as documented Constitutional Constitutional: Denies chills and Denies fever(s) Cardiovascular Cardiovascular: Denies chest pain and Denies dyspnea Respiratory Respiratory: Denies dyspnea Gastrointestinal Gastrointestinal: Denies abdominal pain, Denies loose stools, Denies nausea and Denies vomiting Genitourinary Genitourinary: Denies dysuria, Reports flank pain and Denies hematuria Past Medical History Past Medical History CARDIAC: Positive Hypertension ENDOCRINE: Positive Diabetes Mellitus Type 2 Surgical History OTHER SURGICAL HX: R foot Social History SMOKING STATUS: Never smoker SUBSTANCE USE: does not use ALCOHOL: Never ED Exam General Limitations: Present no limitations General appearance: Present alert and in no apparent distress Head Head exam: Present atraumatic and normocephalic Eye Eye exam: Present normal appearance, PERRL and EOMI ENT ENT exam: Present normal exam and mucous membranes moist Neck Neck exam: Present normal inspection and full ROM Chest Chest inspection: Present normal inspection and symmetric chest wall rise Respiratory Respiratory exam: Present normal lung sounds bilaterally; Absent respiratory distress Cardiovascular Cardiovascular exam: Present regular rate and normal rhythm Abdominal Exam Abdominal exam: Present soft; Absent distention, tenderness, guarding or rebound Extremities Exam Extremities exam: Present normal inspection and full ROM Back Exam Back exam: Absent CVA tenderness (R) or CVA tenderness (L) Neurological Exam Neurological exam: Present alert and oriented X3 Psychiatric Psychiatric exam: Present normal affect and normal mood Skin Skin exam: Present warm, dry, intact and normal color Course Quality Measures none Orders Category Date Time Status CT abdomen pelvis wo con Stat Exams 07/22/25 00:23 Completed Amylase Stat Lab 07/22/25 00:34 Completed CBC Stat Lab 07/22/25 00:34 Completed CMP [Comprehensive Metabolic Panel] Stat Lab 07/22/25 00:34 Completed HCG Qualitative,Urine Stat Lab 07/22/25 01:46 Completed UA [Urinalysis] Stat Lab 07/22/25 01:46 Completed HYDROcodone*/APAP 7.5/325 [[place] 7.5/325] Med 07/22/25 02:08 Discontinued 1 tab PO X1 ONE Vital Signs Vital signs: Vital Signs Temperature 97.9 F 07/22/25 00:00 Pulse Rate 87 07/22/25 00:00 Respiratory Rate 18 07/22/25 00:00 Blood Pressure 136/80 H 07/22/25 00:00 Pulse Oximetry (%) 96 07/22/25 00:00 Oxygen Delivery Method Room Air 07/22/25 00:00 Abdominal Pain MDM MDM Narrative MDM Narrative:: 45yof presents to ED for bilateral flank pain x2 weeks. This is patient's third visit this month for the same complaint. No fever, sob, c/p, n/v/d or urinary symptoms reported. Patient has taken tylenol with minimal relief. Will treat for UTI. ED workup and exam reassuring. Encouraged rest, fluids, symptomatic treatment prn. Recommended close pcp follow up, patient has appointment in 2 weeks. Stable for dc, RTED precautions given. Patient data External records reviewed:: [facility] previous records (07/18/25 ED visit for flank pain) Clinical information provided by:: patient Social determinants that could affect healthcare access:: other (specify) (poor access to healthcare, acculturation difficulty) Patient has the following chronic illnesses:: DM, HTN, obesity How is presenting disease/condition affected by chronic disease/condition?: uneffected by Evaluation data The following diagnostics were reviewed and interpreted by me:: lab results and radiology exam(s) Lab and/or radiology exams considered but not ordered:: none Interpretation Summary: UA +leuks/wbcs Medications / Prescriptions Medications or Prescriptions considered but not ordered:: none Medication administrations:: Medication Administration History Discontinued Medications Hydrocodone Bitart/Acetaminophen (Hydrocodone/[place] 7.5/325 Tablet) 1 tab PO X1 ONE Stop: 07/22/25 02:09 Last Admin: 07/22/25 03:53 Dose: 1 tab Documented By: CVL above medication administered in ED Consultations Consultation(s) initiated? (list below): No Diagnosis Differential diagnosis abdominal pain: abdominal pain, calculus of kidney, gastroenteritis and other (UTI, pyelo, renal colic) Most likely diagnosis given after review of the tests above:: UTI Admission Indicated Admission indicated?: not indicated Admission Request Was there a request for admission?: No Disposition Plan Disposition Plan: Discharge Discharge Attestation Discharge Attestation: The patient and all family members were given an opportunity to ask questions and understood the discharge instructions. Discharge instructions specifically effects, indications for sooner follow up or return to the emergency department, and the expected course of current diagnosis. Patient condition: Stable Discharge Plan Plan Patient Disposition: HOME (Self Care) Patient condition on transfer: Stable Prescriptions/Referrals Prescriptions/Med Rec: New ibuprofen 600 mg tablet 600 mg PO Q6H PRN (Reason: pain) Qty: 30 0RF methocarbamol 500 mg tablet 1,000 mg PO Q8H PRN (Reason: pain) Qty: 30 0RF acetaminophen [Tylenol Extra Strength] 500 mg tablet 1,000 mg PO Q6H PRN (Reason: pain) Qty: 30 0RF cefdinir 300 mg capsule 300 mg PO BID 7 Days Qty: 14 0RF No Action lisinopril 40 mg tablet 40 mg PO QDAY Qty: 30 0RF insulin degludec [Tresiba FlexTouch U-100] 100 unit/mL (3 mL) insulin pen 20 unit subcut HS Qty: 15 0RF Ozempic 0.25 mg or 0.5 mg (2 mg/3 mL) pen injector 0.25 mg subcut QWEEK Qty: 3 0RF Rx Instructions: for 4 weeks (DME) pen needle, diabetic [1st Tier Unifine Pentips Plus] 32 gauge x 5/32 needle See Rx Instructions .Route Qty: 100 0RF Rx Instructions: As directed (DME) FreeStyle Griselda 3 [place] Misc See Rx Instructions .Route Qty: 1 0RF Rx Instructions: As directed atorvastatin 40 mg tablet 40 mg PO QPM Qty: 30 0RF (DME) FreeStyle Griselda 3 Sensor Device See Rx Instructions .Route Qty: 2 3RF Rx Instructions: As directed metformin 1,000 mg tablet 1,000 mg PO BIDWMEAL 30 Days Qty: 60 2RF amlodipine 5 mg tablet 5 mg PO QDAY Qty: 30 3RF cefdinir 300 mg capsule 300 mg PO BID Qty: 14 0RF magnesium oxide 400 mg magnesium tablet 400 mg PO BID Qty: 60 0RF ondansetron 4 mg tablet,disintegrating 4 mg PO TID PRN (Reason: nausea and vomiting) 30 Days Qty: 10 0RF Problem List Clinical Impression: UTI (urinary tract infection), Bilateral flank pain Patient/Caregiver Discharge Instructions Education Materials: Urinary Tract Infections in Women Print Language: Kazakh Stand Alone Forms: Mary Beth Award Info., Patient Portal Info Letter PA/SPECIAL PROJECTS MANAGER Supervising Physician PA/SPECIAL PROJECTS MANAGER Supervising Physician: Artis
[2025-07-22] MEDS: HYDROcodone/APAP 7.5/325 TABLET 1 TAB PO (03:53)
--- NOTE | 2025-07-22 04:43 | PRELIM_ITS ---
CT scan of the abdomen and pelvis without intravenous contrast (axial sections with sagittal and coronal reformats) July 22, 2025 0300 hours Clinical History: b/l flank pain x2 weeks Comparison: CT of July 08, 2025. Findings: The lung bases are clear. The liver, pancreas, spleen, kidneys and adrenals are unremarkable on this noncontrast study. S/p cholecystectomy. No evidence of bowel obstruction. The appendix is within normal limits. There is no mesenteric or retroperitoneal adenopathy. The urinary bladder is nondistended, limited evaluation. There is no free fluid or free air. The osseous structures are unremarkable. Left ovarian cystic lesion measuring 4.5 cm. Impression: Left ovarian cystic lesion, possibly functional. Consider correlation with pelvic ultrasound if clinically indicated. No evidence of kidney or ureteral stones. Report Electronically Signed By: Jake Delgadillo 07/22/2025 4:43:01 AM [EST]
[2025-07-22 05:00] VITALS: RESP 16
== END 2025-07-22 05:00 | disposition home or self-care (01) ==
LOC: SERX 05:17
PROVIDERS: Physician Assistant; Emergency Provider Emergency Medicine; PCP Family Medicine
DX: N39.0 Urinary tract infection, site not specified (principal)
CPT/HCPCS: 36415; 74176; 80053; 81001; 81025; 82150; 85025; 99283; A9270